=== PATIENT | female | born 1990 | race African-American/Black ===

== ENCOUNTER → 2017-09-08 | Outpatient (CLI) | payer OTHER ==
--- NOTE | 2017-09-08 15:22 | RAD ---
Renal ultrasound, 09/08/2017: History: Chronic cystitis The right kidney measures 10.1 cm in length while the left kidney measures 10.3 cm. There is no evidence of hydronephrosis or a renal mass. No abnormal perinephric process is seen. Limited views of urinary bladder show no abnormality. IMPRESSION: No significant abnormality is detected.
== END | disposition home or self-care (01) ==
LOC: US 12:56
PROVIDERS: ATTEND Urology
DX: N30.20 Other chronic cystitis without hematuria (principal)
CPT/HCPCS: 76770